=== PATIENT | female | born 1995 ===

== ENCOUNTER 2017-11-20 15:21 | Emergency (ER) | payer MEDICAID ==
[2017-11-20 15:37] VITALS: BP 117/80; RESP 16; TEMP 99.3; O2SAT 98
[2017-11-20] MEDS ORDERED: Naproxen 500 MG TAB PO STA (16:59)
[2017-11-20] MEDS ORDERED: Bacitracin 500 Units/gm Oint Foilpak UD TOP STA (16:59)
--- NOTE | 2017-11-20 17:09 | ED PDOC ---
Upper Extremity Pain/Injury Time Seen by Provider: 11/20/17 16:28 Chief Complaint (Nursing): Bite Chief Complaint (Provider): Dog Bite History Per: Patient History/Exam Limitations: no limitations Onset/Duration Of Symptoms: Other (just prior to arrival) Additional Complaint(s): 22 y/o female presenting for evaluation of left hand injury sustained just prior to arrival. 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 She states that when she called EMS they irrigated the wound multiple times with saline and brought her to ED for evaluation. Patient reports localized pain and rates 01/12. She states the dog is domesticated and UTD with all vaccinations. Patient reports her tetanus is UTD. LMP 11/06/17. PMD: Dr. Antunez Past Medical History Reviewed: Historical Data, Nursing Documentation, Vital Signs Vital Signs: Last Vital Signs Temp 99.3 F 11/20/17 15:34 Pulse 114 H 11/20/17 15:34 Resp 16 11/20/17 15:34 BP 117/80 11/20/17 15:34 Pulse Ox 98 11/20/17 15:34 - Medical History PMH: No Chronic Diseases - Surgical History Surgical History: No Surg Hx - Family History Family History: States: Unknown Family Hx - Social History Current smoker - smoking cessation education provided: No Alcohol: None Drugs: Denies - Immunization History Hx Tetanus Toxoid Vaccination: Yes (unknown) - Home Medications Home Medications: Ambulatory Orders Medication Instructions Recorded Ibuprofen [Motrin Tab] 600 mg PO Q6 #20 tab 07/03/17 Oseltamivir Phosphate [Tamiflu] 75 mg PO BID #10 capsule 07/03/17 Amoxicillin/Clavulanate [Augmentin 1 tab PO BID #14 tab 11/20/17 875 MG-125 MG] Naproxen 500 mg PO BID PRN #20 tab 11/20/17 - Allergies Allergies/Adverse Reactions: Allergies Allergy/AdvReac Type Severity Reaction Status Date / Time No Known Allergies Allergy Verified 07/07/16 13:35 Review of Systems ROS Statement: Except As Marked, All Systems Reviewed And Found Negative Skin: Positive for: Lesions (multiple bites to LUE) Physical Exam - Reviewed Nursing Documentation Reviewed: Yes Vital Signs Reviewed: Yes - Physical Exam Comments: GENERAL APPEARANCE: Patient is awake, alert, oriented x 3, in no acute distress. Resting comfortably. SKIN: Warm, dry; (-) cyanosis. NECK: Supple, FROM ENT: Mucus membranes moist. Airway patent, (-) stridor. CHEST AND RESPIRATORY: (-) rales, (-) rhonchi, (-) wheezes; breath sounds equal bilaterally. Speaking in full sentences, respirations even and nonlabored. HEART AND CARDIOVASCULAR: (-) irregularity; (-) murmur, (-) gallop. LEFT UPPER EXTREMITY: (+) multiple superficial, scabbed abrasions to the ventral and dorsal mid to distal left forearm, (+) 1 cm linear laceration to the dorsum of the left hand, (+) active bleeding, (+) tenderness, (+) slight surrounding erythema, (-)palpable bony deformity, (-) evidence of surrounding cellulitis. Full ROM of all digits. NV intact, cap refill intact. Remainder of upper extremity with FROM and (-) tenderness. NEURO AND PSYCH: Mental status as above. Gait steady, speech clear. Normal cognition. Appropriate affect. - ECG O2 Sat by Pulse Oximetry: 98 (RA) Pulse Ox Interpretation: Normal Medical Decision Making Medical Decision Makin:59 Impression: Dog bite, hand laceration, skin abrasions Plan: --Augmentin 1 tab PO --Bacitracin topical --Naproxen 500mg PO --X-Ray left hand --Reevaluation Rabies prophylaxis is not required at this time. 1 Steri-Strip applied to approximate laceration to dorsum of hand. Patient tolerated procedure well. 17:38 XR reviewed and radiology report follows: PROCEDURE: Left Hand Radiographs. HISTORY: DOG BITE COMPARISON: None. FINDINGS: BONES: Normal. No fracture. JOINTS: Normal. No osteoarthritic changes. SOFT TISSUES: Normal. OTHER FINDINGS: None. IMPRESSION: Normal left hand radiographs. 1820 On re-evaluation, patient reports improvement of symptoms. On exam, patient remains AAOx3, in no acute distress. On exam, neck is supple, lungs CTA, cardiac RRR, neuro exam shows no focal findings. Repeat HR: 95 VSS, stable for discharge. Educated on wound care. Diagnostic results d/w the patient in great detail. Dx of dog bite, hand laceration, skin abrasions d/w the patient. Based on history, exam and diagnostic results plan will be for discharge and outpatient follow up. Advised to follow up with primary care physician in 1-2 days without fail for wound check. Advised to take medication as prescribed. Return to the emergency room at any time for any new or worsening symptoms. Patient states she fully agrees with and understands discharge instructions. States that she agrees with the plan and disposition. Verbalized and repeated discharge instructions and plan. I have given the patient opportunity to ask any additional questions. -- Scribe Attestation: Documented by Mc Douglas, acting as a scribe for Concetta David PA-C. Provider Scribe Attestation: All medical record entries made by the scribe were at my direction and personally dictated by me. I have reviewed the chart and agree that the record accurately reflects my personal performance of the history, physical exam, medical decision making, and the department course for this patient. I have also personally directed, reviewed, and agree with the discharge instructions and disposition. Disposition - Clinical Impression Clinical Impression: Animal bite wound, Hand laceration, Skin abrasion - Patient ED Disposition Is Patient to be Admitted: No Counseled Patient/Family Regarding: Studies Performed, Diagnosis, Need For Followup, Rx Given - Disposition Referrals: Freedom Antunez MD [Family Provider] - Disposition: Routine/Home Disposition Time: 18:26 Condition: STABLE Additional Instructions: FOLLOW UP WITH PMD IN 1-2 DAYS FOR WOUND CHECK. RETURN TO ED WITH ANY NEW OR WORSENING SYMPTOMS. KEEP WOUND CLEAN AND DRY. Prescriptions: Amoxicillin/Clavulanate [Augmentin 875 MG-125 MG] 1 tab PO BID #14 tab Naproxen 500 mg PO BID PRN #20 tab PRN Reason: Pain, Moderate (4-7) Instructions: Animal Bites (DC), Skin Abrasions, Wound Care Forms: [employer] (Malay) Print Language: [place] - POA Present On Arrival: Falls Or Trauma (bite wound)
[2017-11-20] MEDS ORDERED: Naproxen 500 MG TAB PO ONE (17:24)
[2017-11-20] MEDS ORDERED: Amoxicillin-Clav 875-125 mg Tab PO ONE (17:30)
--- NOTE | 2017-11-20 18:03 | RAD ---
PROCEDURE: Left Hand Radiographs. HISTORY: DOG BITE COMPARISON: None. FINDINGS: BONES: Normal. No fracture. JOINTS: Normal. No osteoarthritic changes. SOFT TISSUES: Normal. OTHER FINDINGS: None. IMPRESSION: Normal left hand radiographs.
[2017-11-20 18:29] VITALS: PULSE 95
== END 2017-11-20 18:45 | disposition home or self-care (01) ==
LOC: H.ER 15:21 → MERGE 15:21 → H.ER 18:45
DX: S61.412A Laceration without foreign body of left hand, initial encounter (principal); W54.0XXA Bitten by dog, initial encounter; Y92.89 Other specified places as the place of occurrence of the external cause